=== PATIENT | female | born 1970 | race African-American/Black ===

== ENCOUNTER 2020-04-04 16:42 | Emergency (ER) | payer MEDICAID ==
[~2020-04-04] VITALS: Ht 175.3 cm; Wt 90.9 kg
[2020-04-04] MEDS ORDERED: DIPH25 PO (16:45)
[2020-04-04] MEDS ORDERED: IBUP-1506 PO (16:45)
[2020-04-04 19:56] VITALS: BP 158/97
== END 2020-04-04 20:26 | disposition left against medical advice (07) ==
LOC: EMS 16:42
DX: M25.561 Pain in right knee (principal); F17.210 Nicotine dependence, cigarettes, uncomplicated; Z88.2 Allergy status to sulfonamides; Z79.899 Other long term (current) drug therapy
CPT/HCPCS: Z7502

== ENCOUNTER 2020-04-05 17:12 | Emergency (ER) | payer MEDICAID ==
[~2020-04-05] VITALS: Ht 175.3 cm; Wt 79.5 kg
[~2020-04-05 17:12] MED LIST: DIPH25 PO; IBUP-1506 PO
[2020-04-05 20:38] VITALS: BP 135/79
== END 2020-04-05 21:20 | disposition home or self-care (01) ==
LOC: EMS 17:14
DX: S89.91XA Unspecified injury of right lower leg, initial encounter (principal); F17.210 Nicotine dependence, cigarettes, uncomplicated; F12.90 Cannabis use, unspecified, uncomplicated; Z90.710 Acquired absence of both cervix and uterus; Z88.1 Allergy status to other antibiotic agents; X58.XXXA Exposure to other specified factors, initial encounter; Y93.89 Activity, other specified; Y92.89 Other specified places as the place of occurrence of the external cause; Y99.8 Other external cause status
CPT/HCPCS: 29505; 29530